=== PATIENT | female | born 1975 | race Caucasian/White ===

== ENCOUNTER 2017-08-29 13:24 | Outpatient (CLI) | payer OTHER ==
--- NOTE | 2017-08-29 14:41 | MMO ---
BILATERAL SCREENING MAMMOGRAM: DATE: 08/29/17 HISTORY: 42-year-old female for screening mammography. COMPARISON: 06/02/16. FINDINGS: Bilateral MLO and CC views of the breasts show scattered fibroglandular breast tissue. There is no ev idence of suspicious mass, suspicious cluster of microcalcifications, or area of architectural distor tion. Interpretation of this mammogram was performed with the assistance of computer-aided detection. IMPRESSION: BIRADS 1: Negative Annual screening mammography is recommended. POS: TANIA
== END 2017-08-29 13:25 | disposition home or self-care (01) ==
LOC: SCSMAMMO 13:24
PROVIDERS: ATTEND Family Medicine
DX: Z12.31 Encounter for screening mammogram for malignant neoplasm of breast (principal)
CPT/HCPCS: 77067

== ENCOUNTER 2017-09-15 12:25 | Outpatient (CLI) | payer OTHER ==
--- NOTE | 2017-09-15 13:20 | RAD ---
KUB AND UPRIGHT: HISTORY: Left lower quadrant abdomen pain. FINDINGS: The bowel gas pattern appears nonobstructive. Postop changes, which appear to be related to a cholec ystectomy, are seen. No free air. No significant bony findings. A phlebolith is seen in the left p drew. IMPRESSION: No acute findings. POS: C
== END 2017-09-15 12:26 | disposition home or self-care (01) ==
LOC: SCSRAD 12:25
PROVIDERS: ATTEND Family Medicine
DX: R10.32 Left lower quadrant pain (principal)
CPT/HCPCS: 74019; 80053; 81001; 85025; 87086

== ENCOUNTER 2018-10-31 10:09 | Outpatient (CLI) | payer OTHER ==
--- NOTE | 2018-11-01 11:13 | MMO ---
Bilateral MAMMO Bilat Screen DDI. CLINICAL HISTORY: Patient is 43 years old and is seen for screening. The patient has no family history of breast cancer. The patient has no personal history of cancer. VIEWS: The views performed were: bilateral craniocaudal and bilateral mediolateral oblique. FILMS COMPARED: The present examination has been compared to prior imaging studies performed at [facility] on 06/02/2016 and 08/29/2017. This study has been interpreted with the assistance of computer-aided detection. MAMMOGRAM FINDINGS: There are scattered fibroglandular densities. There are no suspicious masses, suspicious calcifications, or new areas of architectural distortion. IMPRESSION: THERE IS NO MAMMOGRAPHIC EVIDENCE OF MALIGNANCY. A ROUTINE FOLLOW-UP MAMMOGRAM IN 1 YEAR IS RECOMMENDED. ACR BI-RADS Category 1 - Negative MAMMOGRAPHY NOTE: 1. A negative mammogram report should not delay a biopsy if a dominant of clinically suspicious mass is present. 2. Approximately 10% to 15% of breast cancers are not detected by mammography. 3. Adenosis and dense breasts may obscure an underlying neoplasm.
== END 2018-10-31 10:10 | disposition home or self-care (01) ==
LOC: SCSMAMMO 10:09
PROVIDERS: ATTEND Family Medicine
DX: Z12.31 Encounter for screening mammogram for malignant neoplasm of breast (principal)
CPT/HCPCS: 77067

== ENCOUNTER 2019-06-15 12:51 | Emergency (ER) | payer OTHER ==
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
== END 2019-06-15 14:55 | disposition home or self-care (01) ==
LOC: SCSER 12:51
DX: S16.1XXA Strain of muscle, fascia and tendon at neck level, initial encounter (principal); S00.93XA Contusion of unspecified part of head, initial encounter; S40.011A Contusion of right shoulder, initial encounter; E78.00 Pure hypercholesterolemia, unspecified; F32.9 Major depressive disorder, single episode, unspecified; F41.9 Anxiety disorder, unspecified; R73.03 Prediabetes; Z79.84 Long term (current) use of oral hypoglycemic drugs; Z79.899 Other long term (current) drug therapy; V43.62XA Car passenger injured in collision with other type car in traffic accident, initial encounter
CPT/HCPCS: 70450; 72125

== ENCOUNTER 2019-08-10 14:15 | Outpatient (CLI) | payer OTHER ==
--- NOTE | 2019-08-10 15:18 | MMO ---
Left Breast MAMMO Unilat Diag DDI LT+THANIA. CLINICAL HISTORY: Patient is 44 years old and is seen for diagnostic exam and lump or thickening in the left breast at 3 o'clock. The patient has no family history of breast cancer. The patient has no personal history of cancer. VIEWS: The views performed were: left craniocaudal with tomosynthesis; left mediolateral oblique with tomosynthesis; and left mediolateral with tomosynthesis. FILMS COMPARED: The present examination has been compared to prior imaging studies performed at [facility] on 06/02/2016, 08/29/2017 and 10/31/2018, and at [facility] on 08/10/2019. This study has been interpreted with the assistance of computer-aided detection. MAMMOGRAM FINDINGS: There are scattered fibroglandular densities. Finding 1: There is a stable focal asymmetry seen in the upper-outer region of the left breast. Finding 2: There are no mammographic abnormalities in the area of palpable concern. Ultrasound demonstrates a probably benign finding in this region. IMPRESSION: FINDING 2: FINDING IN THE LEFT BREAST IS PROBABLY BENIGN. FOLLOW-UP IN 3 MONTHS IS RECOMMENDED. THE RESULTS OF THIS EXAM WERE SENT TO THE PATIENT. ACR BI-RADS Category 3 - Probably benign finding - short interval follow-up suggested. [facility] will notify the patient of the need for additional imaging services. MAMMOGRAPHY NOTE: 1. A negative mammogram report should not delay a biopsy if a dominant of clinically suspicious mass is present. 2. Approximately 10% to 15% of breast cancers are not detected by mammography. 3. Adenosis and dense breasts may obscure an underlying neoplasm. Reported by: HAILEE ROBLES MD Electonically Signed: [id number]
--- NOTE | 2019-08-10 15:24 | ULT ---
LIMITED LEFT BREAST ULTRASOUND: DATE: 08/10/2019. PROVIDED CLINICAL HISTORY: Left breast palpable abnormality. FINDINGS: Limited sonographic interrogation was performed of the left breast in the region of palpable concern. There is a 5 mm oval hypoechoic, wider than tall, nonshadowing smoothly marginated mass at the 3 o' clock position. No additional abnormalities are evident in this region. IMPRESSION: BIRADS category 3 - probably benign findings. Followup ultrasound in 3 months recommended. POS: OFF
== END 2019-08-10 14:16 | disposition home or self-care (01) ==
LOC: BICMAMMO 14:15
PROVIDERS: ATTEND Family Medicine
DX: N64.4 Mastodynia (principal)
CPT/HCPCS: G0279

== ENCOUNTER 2019-11-19 10:30 | Outpatient (CLI) | payer OTHER ==
--- NOTE | 2019-11-19 11:35 | MMO ---
Bilateral MAMMO Bilat Diag DDI+THANIA. CLINICAL HISTORY: Patient is 44 years old and is seen for follow-up at short-interval from prior study. The patient has no family history of breast cancer. The patient has no personal history of cancer. VIEWS: The views performed were: bilateral craniocaudal with tomosynthesis; bilateral mediolateral oblique with tomosynthesis; and bilateral mediolateral with tomosynthesis. FILMS COMPARED: The present examination has been compared to prior imaging studies performed at [facility] on 10/31/2018, and at [facility] on 08/10/2019 and 11/19/2019. This study has been interpreted with the assistance of computer-aided detection. MAMMOGRAM FINDINGS: There are scattered fibroglandular densities. Finding 1: There is a stable focal asymmetry seen in the upper-outer region of the left breast. Finding 2: No ultrasound findings in area of concern in outer left breast. There are no suspicious masses, suspicious calcifications, or new areas of architectural distortion. IMPRESSION: THERE IS NO MAMMOGRAPHIC EVIDENCE OF MALIGNANCY. A ROUTINE FOLLOW-UP MAMMOGRAM IN 1 YEAR IS RECOMMENDED. THE RESULTS OF THIS EXAM WERE SENT TO THE PATIENT. ACR BI-RADS Category 2 - Benign finding MAMMOGRAPHY NOTE: 1. A negative mammogram report should not delay a biopsy if a dominant of clinically suspicious mass is present. 2. Approximately 10% to 15% of breast cancers are not detected by mammography. 3. Adenosis and dense breasts may obscure an underlying neoplasm. Reported by: AJIT ELLIS MD Electonically Signed: [id number]
--- NOTE | 2019-11-19 12:25 | ULT ---
LEFT BREAST ULTRASOUND: HISTORY: Three-month followup of hypoechoic area 3 o'clock position left breast. COMPARISON: Ultrasound examination of 08/10/2019. FINDINGS: Real-time imaging of the left breast at the 3 o'clock position 10 cm from the nipple was again perfor med. There is a lobule of breast tissue in this area. There are some ducts seen in this area. It i s difficult to definitely reproduce the hypoechoic 5 mm nodular area, although on real-time imaging I was able to reproduce a vaguely similar area in this breast but on real-time imaging this appears ju st to be part of the normal architecture of the breast parenchyma in this region. IMPRESSION: BIRADS category 2 - benign findings. Routine mammographic followup is recommended. POS: TASNEEM
== END 2019-11-19 10:31 | disposition home or self-care (01) ==
LOC: BICMAMMO 10:30
PROVIDERS: ATTEND Family Medicine
DX: R92.8 Other abnormal and inconclusive findings on diagnostic imaging of breast (principal)
CPT/HCPCS: 77066; G0279

== ENCOUNTER 2020-09-09 10:44 | Outpatient (CLI) | payer OTHER, SELFPAY | END 2020-09-09 10:45 | disposition home or self-care (01) | LOC: DTY/OP 10:44 | PROVIDERS: ATTEND Family Medicine | DX: E11.69 Type 2 diabetes mellitus with other specified complication (principal); E66.01 Morbid (severe) obesity due to excess calories | CPT/HCPCS: 97802 ==

== ENCOUNTER 2022-02-25 19:00 | Outpatient (CLI) | payer BC | END 2022-02-25 19:01 | disposition home or self-care (01) | LOC: SLEEPLAB 19:00 | PROVIDERS: ATTEND Internal Medicine | DX: G47.33 Obstructive sleep apnea (adult) (pediatric) (principal); R53.83 Other fatigue; R06.83 Snoring; G47.10 Hypersomnia, unspecified; E66.9 Obesity, unspecified; Z68.32 Body mass index [BMI] 32.0-32.9, adult | CPT/HCPCS: 95811 ==

== ENCOUNTER 2025-05-24 14:59 | Outpatient (CLI) | payer BC | END 2025-05-24 15:00 | disposition home or self-care (01) | LOC: SCSBT 14:59 | PROVIDERS: ATTEND Family Medicine | DX: Z78.0 Asymptomatic menopausal state (principal) | CPT/HCPCS: 77080 ==